=== PATIENT | female | born 1950 | race Caucasian/White ===

== ENCOUNTER → 2016-11-22 | Outpatient (CLI) | payer BC, MEDICARE ==
[~2016-11-22] MED LIST: IPRA3AMP INH; LACT1CAP43 PO; MOME13HF3 INH; ONDA4TAB7 PO; TRAM50TA2 PO
[2016-11-22 12:40] LABS: BLOOD UREA NITROGEN 15 mg/dL (7-18)
[2016-11-22 12:45] LABS: ASPARTATE AMINO TRANSFERASE 26 U/L (15-37)
== END | disposition home or self-care (01) ==
LOC: LAB 12:14
PROVIDERS: ATTEND Specialist
DX: Z51.12 Encounter for antineoplastic immunotherapy (principal); C56.9 Malignant neoplasm of unspecified ovary; R03.0 Elevated blood-pressure reading, without diagnosis of hypertension; R19.07 Generalized intra-abdominal and pelvic swelling, mass and lump
CPT/HCPCS: 36415; 80053

== ENCOUNTER → 2017-01-17 | Outpatient (CLI) | payer BC, MEDICARE ==
[2017-01-17 13:00] LABS: ASPARTATE AMINO TRANSFERASE 46 U/L (15-37); BLOOD UREA NITROGEN 11 mg/dL (7-18)
== END | disposition home or self-care (01) ==
LOC: LAB 12:33
PROVIDERS: ATTEND Specialist
DX: Z51.12 Encounter for antineoplastic immunotherapy (principal); C56.9 Malignant neoplasm of unspecified ovary; R19.07 Generalized intra-abdominal and pelvic swelling, mass and lump; R03.0 Elevated blood-pressure reading, without diagnosis of hypertension
CPT/HCPCS: 36415; 80053; 86304

== ENCOUNTER → 2017-04-26 | Outpatient (CLI) | payer BC, MEDICARE ==
[2017-04-26 13:19] LABS: ASPARTATE AMINO TRANSFERASE 51 U/L (15-37); BLOOD UREA NITROGEN 11 mg/dL (7-18)
== END | disposition home or self-care (01) ==
LOC: LAB 12:51
PROVIDERS: ATTEND Specialist
DX: Z51.12 Encounter for antineoplastic immunotherapy (principal); C56.9 Malignant neoplasm of unspecified ovary; R19.07 Generalized intra-abdominal and pelvic swelling, mass and lump; R03.0 Elevated blood-pressure reading, without diagnosis of hypertension
CPT/HCPCS: 36415; 80053; 86304

== ENCOUNTER → 2017-06-21 | Day surgery (SDC) | payer BC, MEDICARE | LOC: OUT 09:56 | PROVIDERS: ATTEND Specialist | DX: Z02.9 Encounter for administrative examinations, unspecified (principal) ==

== ENCOUNTER 2017-07-29 07:49 | Day surgery (SDC) | payer BC, MEDICARE ==
[~2017-07-29] VITALS: Ht 160 cm; Wt 73.4 kg
[2017-07-29] MEDS ORDERED: SODIUM CHLORIDE 0.9% 1,000 ML IV SCH (08:13)
[2017-07-29 08:35] VITALS: BP 178/102
[2017-07-29] MEDS ORDERED: HYDR25TA6 PO (08:39)
[2017-07-29] MEDS ORDERED: VANCOMYCIN PMX 1GM/200ML 200 ML IV ONE (09:00)
[2017-07-29] MEDS ORDERED: MIDAZOLAM 1 MG/ML, 5ML ONE (09:37)
[2017-07-29] MEDS ORDERED: FENTANYL PF 100 MCG/2ML ONE ×2 (09:37)
[2017-07-29] MEDS ORDERED: FLUMAZENIL 0.1 MG/1 ML, 5ML ONE (09:37)
[2017-07-29] MEDS ORDERED: NALOXONE 1 MG/ML, 2ML ONE (09:37)
[2017-07-29] MEDS ORDERED: LIDOCAINE 2%, 20ML ONE (10:05)
[2017-07-29] MEDS ORDERED: VISIPAQUE 270 MG/ML, 50ML BOTTLE ONE ×2 (10:30→15:23)
== END 2017-07-29 10:47 ==
LOC: OUT 07:49
PROVIDERS: ATTEND Specialist
DX: Z45.2 Encounter for adjustment and management of vascular access device (principal); I10 Essential (primary) hypertension; J45.909 Unspecified asthma, uncomplicated; Z98.890 Other specified postprocedural states; Z85.43 Personal history of malignant neoplasm of ovary
CPT/HCPCS: 36598; 76000; J1642; J2250; J3010; J3370; J7030; Q9966; J3490; J2310

== ENCOUNTER → 2017-07-31 | Outpatient (CLI) | payer MEDICARE, BC ==
[~2017-07-31] MED LIST changes: +HYDR25TA6 PO
[2017-07-31 11:36] LABS: ANION GAP 9 mmol/L (5-15); CALCIUM 8.7 mg/dL (8.5-10.1); CHLORIDE 91 mmol/L (98-107)
[2017-07-31 11:39] LABS: ALANINE AMINOTRANSFERASE 80 U/L (12-78); ALKALINE PHOSPHATASE 89 U/L (45-117); BILIRUBIN,TOTAL 0.7 mg/dL (0.2-1.0); CREATININE 0.78 mg/dL (0.55-1.02); TOTAL PROTEIN 7.4 g/dL (6.4-8.2)
== END ==
LOC: LAB 11:00
PROVIDERS: ATTEND Specialist
DX: C56.9 Malignant neoplasm of unspecified ovary (principal)
CPT/HCPCS: 36415; 80053

== ENCOUNTER → 2018-03-05 | Outpatient (CLI) | payer BC, MEDICARE ==
[~2018-03-05] MED LIST changes: -IPRA3AMP INH; +IPRA3AMP30 INH; +OMNIPAQUE 350 MG/ML, 100ML BOTTLE ONE
== END | disposition home or self-care (01) ==
LOC: CFH 08:45
PROVIDERS: ATTEND Specialist
DX: J44.9 Chronic obstructive pulmonary disease, unspecified (principal); K57.90 Diverticulosis of intestine, part unspecified, without perforation or abscess without bleeding; K66.8 Other specified disorders of peritoneum; C56.9 Malignant neoplasm of unspecified ovary; D69.6 Thrombocytopenia, unspecified; Z88.0 Allergy status to penicillin; Z88.2 Allergy status to sulfonamides
CPT/HCPCS: 71260; 74177; Q9967